=== PATIENT | male | born 1985 | race Caucasian/White ===

== ENCOUNTER → 2020-12-01 13:49 | Outpatient (CLI) | payer OTHER, SELFPAY ==
--- NOTE | ~2020-12-01 | XR_ITS ---
XR sacrum coccyx min 2V DATE: 12/01/2020 14:53 INDICATION: Sacral pain TECHNIQUE: AP, angled AP and lateral COMPARISON: None FINDINGS: No fracture or bone destruction. The sacroiliac joints are intact. IMPRESSION: Negative Reviewed, dictated and finalized at location A. IMPRESSION: Negative
== END ==
PROVIDERS: PCP Physician Assistant Medical; Visit Provider Physician Assistant Medical
DX: M53.3 Sacrococcygeal disorders, not elsewhere classified (principal)
CPT/HCPCS: 72220